=== PATIENT | male | born 1995 | race Two or more races ===

== ENCOUNTER 2018-11-10 21:37 | Emergency (ER) | payer BC ==
[~2018-11-10] VITALS: Ht 182.9 cm; Wt 133.6 kg
[~2018-11-10 21:37] MED LIST: NO HOME MEDS; ZOF4T PO
[2018-11-10 22:43] VITALS: BP 143/80
--- NOTE | 2018-11-11 00:53 | NUR ---
Patient A&O x4 PADILLA and is appropriate. Waiting for MD.
== END 2018-11-11 01:46 | disposition left against medical advice (07) ==
LOC: ER 21:38
DX: J34.89 Other specified disorders of nose and nasal sinuses (principal); Z53.21 Procedure and treatment not carried out due to patient leaving prior to being seen by health care provider